=== PATIENT | male | born 1995 | race Caucasian/White ===

== ENCOUNTER 2023-04-15 07:37 | Emergency (ER) | payer MEDICAID ==
[~2023-04-15] VITALS: Ht 160 cm; Wt 77.3 kg
[2023-04-15] MEDS ORDERED: normal saline 1000ML IV soln IVB ONE (08:25)
[2023-04-15] MEDS ORDERED: ondansetron/PF 4mg/2ml inj IV ONE (08:25)
[2023-04-15 08:39] LABS: BASOPHILS % (AUTO) 0.1 % (0-1); EOSINOPHILS # (AUTO) 0.1 X10'3 (0-0.9); EOSINOPHILS % (AUTO) 0.6 % (0-6); HEMATOCRIT 36.3 % (42.0-52.0); HEMOGLOBIN 12.7 g/dl (14.0-17.9); LYMPHOCYTES # (AUTO) 0.4 X10'3 (1.1-4.8); LYMPHOCYTES % (AUTO) 3.9 % (21-51); MEAN CORPUSCULAR HEMOGLOBIN 30.8 PG (27.0-31.0); MEAN PLATELET VOLUME 6.4 FL (7.4-10.4); MONOCYTES # (AUTO) 0.6 X10'3 (0-0.9); MONOCYTES % (AUTO) 6.3 % (2-12); NEUTROPHILS # (AUTO) 9.2 X10'3 (1.8-7.7); NEUTROPHILS % (AUTO) 89.1 % (42-75); PLATELET COUNT 248 X10'3 (140-440); RED BLOOD COUNT 4.13 X10'6 (4.70-6.10); RED CELL DISTRIBUTION WIDTH 13.1 % (11.5-14.5); WHITE BLOOD COUNT 10.3 X10'3 (4.5-11.0)
[2023-04-15 09:17] LABS: CLARITY,URINE SLIGHTLY CLOUDY (Clear); COLOR,URINE YELLOW (Yellow); GLUCOSE, URINE NEGATIVE (Neg); KETONES,URINE NEGATIVE (Neg); LEUKOCYTE ESTERASE ,URINE TRACE (Neg); NITRITES, URINE NEGATIVE (Neg); OCCULT BLOOD,URINE TRACE-INTACT (Neg); PH,URINE 5.5 (4.8-8.0); PROTEIN,URINE TRACE mg/dl (Neg); UROBILINOGEN,URINE 0.2 E.U/dL (0.2-1.0)
[2023-04-15 09:23] LABS: UA COLLECTION TYPE CLN CATCH MIDSTREAM
[2023-04-15 09:26] LABS: MUCUS STRANDS MANY /LPF (Neg)
[2023-04-15 09:27] LABS: SQUAMOUS EPITHELIAL CELL,UR FEW /LPF (FEW); WBC CLUMPS,URINE FEW /HPF (NEGATIVE)
[2023-04-15 09:30] LABS: AMORPHOUS URATES 1+; RBC,URINE 0-2 /HPF (0-2)
[2023-04-15 09:31] LABS: BACTERIA,URINE FEW /HPF (Neg)
[2023-04-15 10:20] LABS: ALANINE AMINOTRANSFERASE 119 U/L (12-78); ALBUMIN 3.8 G/DL (3.4-5.0); ALKALINE PHOSPHATASE 59 IU/L (46-116); ANION GAP 10 (8-16); ASPARTATE AMINO TRANSFERASE 74 U/L (10-37); BILIRUBIN,TOTAL 2.5 MG/DL (0.1-1.0); BLOOD UREA NITROGEN 15 MG/DL (7-18); BUN/CREATININE RATIO 16.9 (10.0-20.0); CALCIUM 8.4 MG/DL (8.5-10.1); CHLORIDE 99 MMOL/L (99-107); CREATININE 0.89 MG/DL (0.60-1.10); GLUCOSE 119 MG/DL (70-104); LIPASE 55 U/L (73-393); POTASSIUM 3.2 MMOL/L (3.5-5.1); SODIUM 134 MMOL/L (135-145); TOTAL CARBON DIOXIDE 24.8 MMOL/L (24-32); TOTAL PROTEIN 7.6 G/DL (6.4-8.2); eGFR > 90 ML/MIN
[2023-04-15] MEDS ORDERED: CefTRIAXone 1000mg IM Kit (w/lidocaine diluent) IM ONE (10:35)
[2023-04-15] MEDS ORDERED: azithromycin 250mg tablet PO ONE (10:35)
[2023-04-15] MEDS ORDERED: ONDA4TAB12 PO (10:36)
[2023-04-15 11:47] VITALS: BP 114/63
== END 2023-04-15 11:54 | disposition home or self-care (01) ==
LOC: ER 07:38
DX: R11.2 Nausea with vomiting, unspecified (principal); R19.7 Diarrhea, unspecified; E86.0 Dehydration; E87.6 Hypokalemia; E87.1 Hypo-osmolality and hyponatremia; R79.89 Other specified abnormal findings of blood chemistry
CPT/HCPCS: 36415; 80053; 81001; 83690; 85025; 87088; 87491; 87591; 96372; 96374; 96375; 99284; J0696; J2405; J7030; 96361

== ENCOUNTER 2025-07-22 18:23 | Emergency (ER) | payer MEDICAID ==
[~2025-07-22] VITALS: Ht 157.5 cm; Wt 71.5 kg
[~2025-07-22 18:23] MED LIST: ONDA-243 PO
[2025-07-22 18:28] VITALS: BP 132/81; PULSE 90; RESP 16; TEMP 98.2; O2SAT 99
--- NOTE | 2025-07-22 19:26 | Physician Documentation ---
History of Present Illness ~ Chief Complaint: Laceration Stated Complaint: ARM LAC Time Seen by MD: 19:11 Primary Medical Doctor: NONE HPI 30-year-old male presents to the ED with a complaint of a minor laceration on the medial aspect of his right upper arm. bleeding is controlled states he injured himself at work Day of Onset: Jul 22, 2025 Tetanus Within 5 Years: Yes Medication Reconciliation Allergies: Coded Allergies: No Known Allergies (Unverified , 03/20/15) Scheduled PRN ONDANSETRON ODT 4mg tablet (Ondansetron Odt), 1 TABLET PO Q8H PRN for NAUSEA Past Medical History Past Medical History: Chronic Back Pain Lives with: Family Lives In: Home Review of Systems All Other Systems at this time: Reviewed and Negative ROS As stated above in the HPI, otherwise all systems are reviewed and negative. Physical Exam Vital Signs: Temperature: 98.2, Heart Rate: 90, Respiratory Rate: 16, BP: 132/81, Pulse Oximetry: 99, Weight: 71.500 Physical Exam General: Alert, no apparent distress. HEENT: PERRL, EOMI, no injection, moist mucous membranes. Extremities: Normal range of motion, no deformity. 2 cm laceration medial aspect of the right biceps, Neurologic: Oriented x4. Psychiatric: Normal mood and affect. Skin: Normal color, warm and dry. No edema, no ecchymosis. Procedures Laceration/Wound Repair Laceration : Anesthesia: Lidocaine w/ Epi Margins: revised Suture Size/Type: 4-0 Number of Superficial Sutures: 5 Dressing Applied: non-adherent Tolerated Procedure Well?: yes, no complications Progress Results/Orders Results/Orders Orders - HERNÁN CRUZ DOT COMPLIANCE COORDINATOR Laceration/I&D Tray Set Up (07/22/25 ) Completed Orders - HERNÁN CRUZ DOT COMPLIANCE COORDINATOR Lidocaine 1% W/Epi 1:100,000 (Xylocaine (07/22/25 19:30) Tetanus/Pertuss/Diph Acell/Pf (Boostrix (07/22/25 19:30) Medications Received in ER Medications (Trade) Dose Ordered Sig/Humera Route PRN Reason Start Time Stop Time Status Last Admin Dose Admin (Xylocaine 1%-EPI 1:100,000) 30 ml ONCE ONCE SQ 07/22/25 19:30 07/22/25 19:31 DC 07/22/25 19:47 30 ML Vital Signs 07/22/25 18:28 Temp 98.2 Pulse 90 Resp 16 B/P (MAP) 132/81 Pulse Ox 99 Medical Decision Making Findings The patient repaired without issues patient tolerated procedure well. Required five sutures to approximate. Refused the tetanus shot. Differential Dx:Considerations: Include: Abrasion, Avulsion, Contusion, Laceration, Fracture, Hematoma, Neurovascular injury, Retained foreign body, Other Departure Disposition: HOME / SELF CARE / HOMELESS Impression: Primary Impression: Laceration Discharge Instructions: Laceration Care, Adult, [id number] Additional Instructions: Sutures need to come out in 7-10 days. Monitor for redness drainage or increased pain and swelling Referrals: NO PRIMARY CARE PROVIDER (PCP) Education Educated: Patient Signature Scribe Signature: y Attestation: Scribed for Hernán Cruz Cutter Operator by Hernán Katz NP . 07/22/25 20:00 HERNÁN CRUZ DOT COMPLIANCE COORDINATOR Jul 22, 2025 19:26
[2025-07-22] MEDS: TETanus/Pertussis (Acell)/Diphther VAC/PF (Tdap-Adult) 0.5ml syringe IMVAC ONE (19:43)
[2025-07-22] MEDS: LIDOcaine 1% W/epiNEPHrine 1:100,000 20ml vial SQ ONE (19:47)
== END 2025-07-22 20:07 | disposition home or self-care (01) ==
LOC: ER 18:24
DX: S41.111A Laceration without foreign body of right upper arm, initial encounter (principal); X58.XXXA Exposure to other specified factors, initial encounter; Y93.89 Activity, other specified; Y92.89 Other specified places as the place of occurrence of the external cause; Y99.0 Civilian activity done for income or pay
CPT/HCPCS: 12001; 99282; J3490